=== PATIENT | male | born 1970 | race Caucasian/White ===

== ENCOUNTER 2019-12-29 15:45 | Inpatient (IN) ==
[2019-12-29] MEDS ORDERED: Diazepam 5 mg TAB (*) PO ONE (16:19)
[2019-12-29] MEDS ORDERED: Lorazepam PYXIS KEY PRN ×6 (17:07→22:14)
[2019-12-29] MEDS ORDERED: Thiamine 100 MG/ML 2 ml VIAL 100 MG, Folic Acid 1 MG, Multiple Vitamin IV ADULT 10 ML i... IV ONE ×2 (17:07→19:28)
[2019-12-29] MEDS ORDERED: LORazepam 2 mg VIAL 1 ml IV PUSH ONE ×3 (17:07→22:14)
[2019-12-29 18:05] LABS: ABS Basophils 0.1 10^3/ul (0-0.2); ABS Eosinophils 0.3 10^3/ul (0-0.6); ABS Lymphocytes 1.1 10^3/ul (1.0-4.8); ABS Monocytes 1.1 10^3/ul (0-0.8); Eosinophil % 3.6 %; Hematocrit 31 % (42-52); Hemoglobin 10.2 g/dL (14.0-18.0); Lymphocyte % 13.2 %; Mean Corpuscular HGB Conc 33 g/dL (31-36); Mean Corpuscular Hemoglobin 29 pg (27-31); Mean Corpuscular Volume 89 fL (80-94); Mean Platelet Volume 8.5 fL (7.4-10.4); Platelet Count 142 10^3/uL (150-450); Red Blood Count 3.47 10^6 /uL (4.18-5.48); Red Cell Distribution Width 19 % (10-15); White Blood Count 8.3 10^3/uL (3.5-10.8)
[2019-12-29 18:34] LABS: ALT 12 U/L (7-52); AST 19 U/L (13-39); Albumin 3.4 g/dL (3.2-5.2); Albumin/Globulin Ratio 0.9 (1-3); Alkaline Phosphatase 123 U/L (34-104); Anion Gap 9 mmol/L (2-11); BUN/Creatinine Ratio 15.8 (8-20); Blood Urea Nitrogen 25 mg/dL (6-24); CO2 Carbon Dioxide 25 mmol/L (22-32); Calcium 9.3 mg/dL (8.6-10.3); Chloride 102 mmol/L (101-111); EGFR African American 56.5 (>60); EGFR Non-African American 46.7 (>60); Globulin 3.9 g/dL (2-4); Glucose 111 mg/dL (70-100); Potassium 4.6 mmol/L (3.5-5.0); Sodium 136 mmol/L (135-145); Total Protein 7.3 g/dL (6.4-8.9)
[2019-12-29 18:36] LABS: Alcohol, S < 10 mg/dL (<10)
[2019-12-29] MEDS ORDERED: LORazepam 2 mg VIAL 1 ml IM ONE ×2 (18:49→18:51)
[2019-12-29] MEDS ORDERED: Lorazepam PYXIS KEY ONE (19:03)
[2019-12-29] MEDS ORDERED: LORazepam 2 mg VIAL 1 ml ONE ×2 (19:03→22:17)
[2019-12-29] MEDS ORDERED: Etomidate 20 mg/10 ml 2 MG/ML 10 ml VIAL IV ONE (19:11)
[2019-12-29] MEDS ORDERED: Succinylcholine 200 mg VIAL 20 mg/ml 10 ml VIAL (200 mg) IV ONE (19:11)
[2019-12-29] MEDS ORDERED: Succinylcholine 200 mg VIAL 20 mg/ml 10 ml VIAL (200 mg) ONE (19:13)
[2019-12-29] MEDS ORDERED: Midazolam 5 mg/5 ml VIAL 1 mg/ml 5 ml VIAL (5 mg) IV SLOW PU ONE (19:13)
[2019-12-29] MEDS ORDERED: Rocuronium 50 mg VIAL 10 mg/ml 5 ml VIAL (50 mg) ONE (19:13)
[2019-12-29] MEDS ORDERED: Propofol 10 mg/ml 100 ML BTL 100 ML IV ONE (19:13)
[2019-12-29] MEDS ORDERED: levETIRAcetam IV 1,500 MG in NS 0.9% 100 ml BAG 100 ML IVPB ONE (19:29)
[2019-12-29] MEDS ORDERED: LORazepam 2 mg VIAL 1 ml IV PUSH PRN (19:39)
[2019-12-29] MEDS ORDERED: Vancomycin(*) 1,000 MG in NS 0.9% 250 ml 250 ML IVPB ONE (19:40)
[2019-12-29 19:59] LABS: C Reactive Protein 174.17 mg/L (<8.01)
[2019-12-29] MEDS ORDERED: Vancomycin per Pharmacy 1 EA NOTE FOLLOW UP SCH (20:00)
[2019-12-29] MEDS ORDERED: Thiamine 100 MG/ML 2 ml VIAL (200 mg) IV SCH (20:00)
[2019-12-29 20:04] LABS: Urine Appearance Cloudy; Urine Bilirubin Negative (Negative); Urine Blood Negative (Negative); Urine Color Amber; Urine Glucose Negative (Negative); Urine Ketones Negative (Negative); Urine Nitrite Negative (Negative); Urine Protein Negative (Negative); Urine Specific Gravity 1.018 (1.010-1.030); Urine Urobilinogen Negative (Negative)
[2019-12-29 20:19] LABS: Urine Benzodiazepine Screen Presumptive Positive (None Detect); Urine Opiates Screen None Detected (None Detect)
[2019-12-29 20:40] LABS: ABS Basophils 0.1 10^3/ul (0-0.2); ABS Eosinophils 0.3 10^3/ul (0-0.6); ABS Lymphocytes 0.9 10^3/ul (1.0-4.8); ABS Monocytes 0.8 10^3/ul (0-0.8); Hematocrit 29 % (42-52); Hemoglobin 9.6 g/dL (14.0-18.0); Lymphocyte % 12.2 %; Mean Corpuscular HGB Conc 34 g/dL (31-36); Mean Corpuscular Hemoglobin 30 pg (27-31); Mean Corpuscular Volume 89 fL (80-94); Nucleated Red Blood Cells % 0.1; Platelet Count 127 10^3/uL (150-450); Red Blood Count 3.19 10^6 /uL (4.18-5.48); Red Cell Distribution Width 19 % (10-15); White Blood Count 7.3 10^3/uL (3.5-10.8)
[2019-12-29 20:50] LABS: Activated Partial Thrombo Time 27.9 seconds (26.0-38.0); INR 1.21 (0.82-1.09)
[2019-12-29 20:59] LABS: Albumin 3.3 g/dL (3.2-5.2); Albumin/Globulin Ratio 0.8 (1-3); BUN/Creatinine Ratio 14.4 (8-20); Calcium 8.6 mg/dL (8.6-10.3); EGFR African American 50.5 (>60); EGFR Non-African American 41.7 (>60); Globulin 3.9 g/dL (2-4); Potassium 5.5 mmol/L (3.5-5.0); Total Bilirubin 1.2 mg/dL (0.2-1.0); Total Protein 7.2 g/dL (6.4-8.9)
[2019-12-29] MEDS ORDERED: Vancomycin(*) 1,250 MG in NS 0.9% 250 ml 250 ML IVPB ONE (21:00)
[2019-12-29] MEDS ORDERED: Sodium Polystyrene ORAL.SUSP 15 GM/60 ML BTL PO ONE (21:08)
[2019-12-29 21:18] LABS: Prolactin 60.3 ng/mL (1.0-20.0)
[2019-12-29] MEDS ORDERED: Vancomycin per Pharmacy 1 EA NOTE FOLLOW UP PRN (21:44)
[2019-12-29] MEDS: Heparin 5000 UNITS/ML VIAL(*) 1 ml vial SUBCUT SCH (21:58)
[2019-12-29] MEDS: Thiamine IV 500 MG in NS 0.9% 250 ML (Wernicke-Korsakoff) IV SCH (21:59)
[2019-12-29 22:04] LABS: Erythrocyte Sed Rate > 120 mm/Hr (0-19)
[2019-12-29] MEDS: NS 0.9% 1000 ml BAG 1,000 ML IV SCH (22:11)
[2019-12-29 22:55] LABS: Urine Creatinine Concentration 85.37 mg/dL
[2019-12-29] MEDS: Chlorhexidine MOUTHWASH 0.12% 15 ML UDC SCH (23:37)
[2019-12-30] MEDS ORDERED: Lactated Ringers 1000 ml BAG 1,000 ML IV ONE ×2 (00:28→04:00)
[2019-12-30 01:07] LABS: BUN/Creatinine Ratio 17.3 (8-20); Blood Urea Nitrogen 26 mg/dL (6-24); CO2 Carbon Dioxide 22 mmol/L (22-32); Calcium 7.5 mg/dL (8.6-10.3); Chloride 110 mmol/L (101-111); EGFR African American 59.9 (>60); EGFR Non-African American 49.5 (>60); Glucose 118 mg/dL (70-100); Sodium 137 mmol/L (135-145)
[2019-12-30 01:09] LABS: Anion Gap 5 mmol/L (2-11)
[2019-12-30] MEDS: Propofol* 20 ML VIAL - FOR IV LINE PRIMING ONLY SCH ×4 (01:38→21:35)
[2019-12-30] MEDS: Chlorhexidine MOUTHWASH 0.12% 15 ML UDC SCH ×6 (02:17→21:59)
[2019-12-30] MEDS: Propofol 10 mg/ml 100 ML BTL 100 ML IV SCH ×2 (03:07→22:29)
[2019-12-30 04:16] LABS: ABS Eosinophils 0.2 10^3/ul (0-0.6); ABS Lymphocytes 1.1 10^3/ul (1.0-4.8); ABS Monocytes 0.6 10^3/ul (0-0.8); Eosinophil % 4.9 %; Hematocrit 23 % (42-52); Hemoglobin 7.7 g/dL (14.0-18.0); Lymphocyte % 22.8 %; Mean Corpuscular HGB Conc 33 g/dL (31-36); Mean Corpuscular Hemoglobin 30 pg (27-31); Mean Corpuscular Volume 90 fL (80-94); Mean Platelet Volume 8.3 fL (7.4-10.4); Platelet Count 107 10^3/uL (150-450); Red Blood Count 2.59 10^6 /uL (4.18-5.48); Red Cell Distribution Width 19 % (10-15); White Blood Count 4.6 10^3/uL (3.5-10.8)
[2019-12-30 04:32] LABS: BUN/Creatinine Ratio 18.2 (8-20); Blood Urea Nitrogen 24 mg/dL (6-24); CO2 Carbon Dioxide 22 mmol/L (22-32); Calcium 7.2 mg/dL (8.6-10.3); EGFR African American 69.5 (>60); EGFR Non-African American 57.4 (>60); Glucose 95 mg/dL (70-100); Potassium 3.9 mmol/L (3.5-5.0); Sodium 139 mmol/L (135-145)
[2019-12-30 04:40] LABS: Anion Gap 4 mmol/L (2-11); Chloride 113 mmol/L (101-111)
[2019-12-30] MEDS: Heparin 5000 UNITS/ML VIAL(*) 1 ml vial SUBCUT SCH ×3 (05:56→21:59)
[2019-12-30] MEDS: Thiamine IV 500 MG in NS 0.9% 250 ML (Wernicke-Korsakoff) IV SCH ×3 (05:56→21:59)
[2019-12-30 06:27] LABS: % Iron Saturation 11 % (15-55); Iron 30 ug/dL (50-212); Total Iron Binding Capacity 274 mcg/dL (250-450); Transferrin 196 mg/dL (203-362)
[2019-12-30] MEDS ORDERED: NS 0.9% 1000 ml BAG 1,000 ML IV ONE (06:37)
[2019-12-30 06:48] LABS: Ferritin 128.9 ng/mL (24-336)
[2019-12-30] MEDS: LEVETIRACETAM 500 MG IV SCH ×2 (07:35→21:59)
[2019-12-30] MEDS: Multivitamins ADULT w/MIN LIQ 15 ML UDC PO SCH (07:35)
[2019-12-30] MEDS: IVPREM IV SCH ×2 (07:35→21:59)
[2019-12-30] MEDS: Vancomycin(*) 750 MG in NS 0.9% 250 ml 250 ML IVPB SCH ×2 (07:42→21:58)
[2019-12-30] MEDS: NS 0.9% 1000 ml BAG 1,000 ML IV SCH (07:58)
[2019-12-30] MEDS: Cefepime 1 GM in Dextrose(*) 1 GM/50 ML BAG IV SCH ×2 (08:47→19:22)
[2019-12-30] MEDS: Dexmedetomidine 1,000 MCG in NS 0.9% 250 ml 240 ML IV SCH (09:00)
[2019-12-30] MEDS ORDERED: Thiamine 100 MG/ML 2 ml VIAL (200 mg) IV SCH (09:00)
[2019-12-30] MEDS ORDERED: Magnesium Sulfate 2 gm BAG 2 GM/50 ML BAG IVPB ONE (10:45)
[2019-12-30] MEDS: CMCS:Venlafaxine 25 mg TAB (NF) PO SCH ×2 (11:23→21:59)
[2019-12-30] MEDS ORDERED: Albumin Human 5% 25 GM/500 ML BTL IV ONE (13:18)
[2019-12-30] MEDS ORDERED: Albumin Human 5% 25.0 GM/500 ML BTL IV ONE (13:24)
[2019-12-30] MEDS ORDERED: Albumin Human 5% 12.5 GM/250 ML BTL IV SCH (14:00)
[2019-12-30] MEDS ORDERED: Norepinephrine 16MCG/ML IVPRE 4,000 MCG/250 ML BAG IV ONE (15:13)
[2019-12-30] MEDS: Norepinephrine 16MCG/ML IVPRE 4,000 MCG/250 ML BAG IV SCH (15:15)
[2019-12-31] MEDS: NS 0.9% 1000 ml BAG 1,000 ML IV SCH ×2 (00:07→18:21)
[2019-12-31] MEDS: Chlorhexidine MOUTHWASH 0.12% 15 ML UDC SCH ×6 (00:53→21:21)
[2019-12-31] MEDS ORDERED: fentaNYL 100 mcg/2 ml 50 MCG/ML VIAL ONE (01:22)
[2019-12-31] MEDS ORDERED: Ziprasidone IM 20 mg VIAL 1 ml VIAL IM ONE (01:26)
[2019-12-31] MEDS: fentaNYL 100 mcg/2 ml 50 MCG/ML VIAL IV SLOW PU PRN ×5 (01:37→19:41)
[2019-12-31] MEDS: Propofol 10 mg/ml 100 ML BTL 100 ML IV SCH ×4 (02:26→16:46)
[2019-12-31] MEDS: Dexmedetomidine 1,000 MCG in NS 0.9% 250 ml 240 ML IV SCH ×2 (04:54→19:25)
[2019-12-31 05:07] LABS: ABS Basophils 0.1 10^3/ul (0-0.2); ABS Eosinophils 0.2 10^3/ul (0-0.6); ABS Lymphocytes 0.9 10^3/ul (1.0-4.8); ABS Monocytes 0.6 10^3/ul (0-0.8); Hematocrit 24 % (42-52); Hemoglobin 8.3 g/dL (14.0-18.0); Lymphocyte % 15.3 %; Mean Corpuscular HGB Conc 35 g/dL (31-36); Mean Corpuscular Hemoglobin 31 pg (27-31); Mean Corpuscular Volume 91 fL (80-94); Mean Platelet Volume 8.7 fL (7.4-10.4); Platelet Count 107 10^3/uL (150-450); Red Blood Count 2.65 10^6 /uL (4.18-5.48); Red Cell Distribution Width 19 % (10-15)
[2019-12-31 05:17] LABS: Albumin 2.7 g/dL (3.2-5.2); Albumin/Globulin Ratio 0.9 (1-3); BUN/Creatinine Ratio 14.9 (8-20); Calcium 7.7 mg/dL (8.6-10.3); EGFR African American 94.6 (>60); EGFR Non-African American 78.2 (>60); Globulin 2.9 g/dL (2-4); Phosphorus 2.3 mg/dL (2.5-5.0); Potassium 3.9 mmol/L (3.5-5.0); Total Bilirubin 0.6 mg/dL (0.2-1.0); Total Protein 5.6 g/dL (6.4-8.9)
[2019-12-31] MEDS: Heparin 5000 UNITS/ML VIAL(*) 1 ml vial SUBCUT SCH ×3 (05:37→21:21)
[2019-12-31] MEDS: Thiamine IV 500 MG in NS 0.9% 250 ML (Wernicke-Korsakoff) IV SCH ×3 (05:37→21:21)
[2019-12-31] MEDS ORDERED: Vancomycin Trough Check NOTE FOLLOW UP ONE (08:30)
[2019-12-31] MEDS: Cefepime 1 GM in Dextrose(*) 1 GM/50 ML BAG IV SCH ×2 (08:35→19:11)
[2019-12-31] MEDS: Propofol* 20 ML VIAL - FOR IV LINE PRIMING ONLY SCH ×2 (08:41→20:58)
[2019-12-31] MEDS: Multivitamins ADULT w/MIN LIQ 15 ML UDC PO SCH (09:39)
[2019-12-31] MEDS: LEVETIRACETAM 500 MG IV SCH ×2 (09:39→21:21)
[2019-12-31] MEDS: Vancomycin(*) 750 MG in NS 0.9% 250 ml 250 ML IVPB SCH ×2 (09:39→21:21)
[2019-12-31] MEDS: IVPREM IV SCH ×2 (09:39→21:21)
[2019-12-31] MEDS: CMCS:Venlafaxine 25 mg TAB (NF) PO SCH ×2 (09:40→21:54)
[2020-01-01] MEDS: fentaNYL 100 mcg/2 ml 50 MCG/ML VIAL IV SLOW PU PRN ×3 (00:45→21:39)
[2020-01-01] MEDS: Chlorhexidine MOUTHWASH 0.12% 15 ML UDC SCH ×6 (02:11→21:14)
[2020-01-01] MEDS: NS 0.9% 1000 ml BAG 1,000 ML IV SCH ×3 (02:41→16:00)
[2020-01-01 04:18] LABS: ABS Eosinophils 0.1 10^3/ul (0-0.6); ABS Lymphocytes 0.8 10^3/ul (1.0-4.8); ABS Monocytes 0.4 10^3/ul (0-0.8); Eosinophil % 4.1 %; Hematocrit 25 % (42-52); Lymphocyte % 22.8 %; Mean Corpuscular HGB Conc 33 g/dL (31-36); Mean Corpuscular Hemoglobin 30 pg (27-31); Mean Corpuscular Volume 92 fL (80-94); Mean Platelet Volume 8.4 fL (7.4-10.4); Nucleated Red Blood Cells % 0.1; Platelet Count 105 10^3/uL (150-450); Red Blood Count 2.68 10^6 /uL (4.18-5.48); Red Cell Distribution Width 19 % (10-15); White Blood Count 3.5 10^3/uL (3.5-10.8)
[2020-01-01 04:34] LABS: BUN/Creatinine Ratio 11.6 (8-20); Calcium 7.5 mg/dL (8.6-10.3); EGFR African American 101.5 (>60); EGFR Non-African American 83.9 (>60); Potassium 3.9 mmol/L (3.5-5.0)
[2020-01-01] MEDS: Thiamine IV 500 MG in NS 0.9% 250 ML (Wernicke-Korsakoff) IV SCH ×2 (06:18→13:49)
[2020-01-01] MEDS: Heparin 5000 UNITS/ML VIAL(*) 1 ml vial SUBCUT SCH ×3 (06:18→21:14)
[2020-01-01] MEDS: Dexmedetomidine 1,000 MCG in NS 0.9% 250 ml 240 ML IV SCH (06:18)
[2020-01-01] MEDS: Cefepime 1 GM in Dextrose(*) 1 GM/50 ML BAG IV SCH ×2 (07:57→19:50)
[2020-01-01] MEDS: Propofol* 20 ML VIAL - FOR IV LINE PRIMING ONLY SCH ×2 (07:57→19:50)
[2020-01-01] MEDS: CMCS:Venlafaxine 25 mg TAB (NF) PO SCH ×2 (09:24→21:14)
[2020-01-01] MEDS: Multivitamins ADULT w/MIN LIQ 15 ML UDC PO SCH (09:24)
[2020-01-01] MEDS: LEVETIRACETAM 500 MG IV SCH ×2 (09:24→21:14)
[2020-01-01] MEDS: IVPREM IV SCH ×2 (09:24→21:14)
[2020-01-01] MEDS: Vancomycin(*) 750 MG in NS 0.9% 250 ml 250 ML IVPB SCH ×2 (09:44→21:14)
[2020-01-01] MEDS ORDERED: fentaNYL 100 mcg/2 ml 50 MCG/ML VIAL IV SLOW PU ONE (10:31)
[2020-01-01] MEDS: Propofol 10 mg/ml 100 ML BTL 100 ML IV SCH ×3 (11:55→20:25)
[2020-01-02] MEDS: Dexmedetomidine 1,000 MCG in NS 0.9% 250 ml 240 ML IV SCH ×3 (01:15→19:12)
[2020-01-02] MEDS ORDERED: fentaNYL 100 mcg/2 ml 50 MCG/ML VIAL ONE (01:59)
[2020-01-02] MEDS: fentaNYL 100 mcg/2 ml 50 MCG/ML VIAL IV SLOW PU PRN ×3 (02:05→12:11)
[2020-01-02] MEDS: Chlorhexidine MOUTHWASH 0.12% 15 ML UDC SCH ×6 (02:07→20:27)
[2020-01-02] MEDS ORDERED: fentaNYL 100 mcg/2 ml 50 MCG/ML VIAL IV SLOW PU ONE (03:15)
[2020-01-02 04:59] LABS: ABS Eosinophils 0.1 10^3/ul (0-0.6); ABS Lymphocytes 0.4 10^3/ul (1.0-4.8); ABS Monocytes 0.2 10^3/ul (0-0.8); Eosinophil % 3.3 %; Hematocrit 23 % (42-52); Hemoglobin 7.7 g/dL (14.0-18.0); Lymphocyte % 11.4 %; Mean Corpuscular HGB Conc 34 g/dL (31-36); Mean Corpuscular Hemoglobin 30 pg (27-31); Mean Corpuscular Volume 91 fL (80-94); Mean Platelet Volume 8.3 fL (7.4-10.4); Nucleated Red Blood Cells % 0.1; Platelet Count 101 10^3/uL (150-450); Red Blood Count 2.54 10^6 /uL (4.18-5.48); Red Cell Distribution Width 20 % (10-15); White Blood Count 3.3 10^3/uL (3.5-10.8)
[2020-01-02 05:12] LABS: BUN/Creatinine Ratio 12.4 (8-20); Calcium 7.5 mg/dL (8.6-10.3); EGFR African American 99.1 (>60); EGFR Non-African American 81.9 (>60); Potassium 3.9 mmol/L (3.5-5.0)
[2020-01-02] MEDS: Propofol 10 mg/ml 100 ML BTL 100 ML IV SCH ×4 (05:32→21:11)
[2020-01-02] MEDS: Heparin 5000 UNITS/ML VIAL(*) 1 ml vial SUBCUT SCH ×3 (06:06→20:26)
[2020-01-02] MEDS: NS 0.9% 1000 ml BAG 1,000 ML IV SCH (07:19)
[2020-01-02] MEDS: Cefepime 1 GM in Dextrose(*) 1 GM/50 ML BAG IV SCH ×2 (07:21→19:15)
[2020-01-02] MEDS: LEVETIRACETAM 500 MG IV SCH ×2 (08:37→20:26)
[2020-01-02] MEDS: IVPREM IV SCH ×2 (08:37→20:26)
[2020-01-02] MEDS: Multivitamins ADULT w/MIN LIQ 15 ML UDC PO SCH (08:41)
[2020-01-02] MEDS: CMCS:Venlafaxine 25 mg TAB (NF) PO SCH ×2 (08:41→20:27)
[2020-01-02] MEDS: Vancomycin(*) 750 MG in NS 0.9% 250 ml 250 ML IVPB SCH ×2 (08:41→21:11)
[2020-01-02] MEDS ORDERED: Cefepime 1 GM in Dextrose(*) 1 GM/50 ML BAG IV SCH (09:00)
[2020-01-02] MEDS ORDERED: Lorazepam PYXIS KEY ONE (13:13)
[2020-01-02] MEDS ORDERED: LORazepam 2 mg VIAL 1 ml ONE (13:14)
[2020-01-02] MEDS ORDERED: LORazepam 2 mg VIAL 1 ml IV PUSH ONE (13:20)
[2020-01-02] MEDS: Norepinephrine 16MCG/ML IVPRE 4,000 MCG/250 ML BAG IV SCH (15:05)
[2020-01-02] MEDS: Propofol* 20 ML VIAL - FOR IV LINE PRIMING ONLY SCH (19:13)
[2020-01-03] MEDS: Propofol 10 mg/ml 100 ML BTL 100 ML IV SCH ×5 (01:16→19:47)
[2020-01-03] MEDS: Chlorhexidine MOUTHWASH 0.12% 15 ML UDC SCH ×6 (01:58→22:12)
[2020-01-03] MEDS: fentaNYL 100 mcg/2 ml 50 MCG/ML VIAL IV SLOW PU PRN ×4 (02:53→19:46)
[2020-01-03] MEDS: Dexmedetomidine 1,000 MCG in NS 0.9% 250 ml 240 ML IV SCH ×3 (04:31→21:00)
[2020-01-03] MEDS: NS 0.9% 1000 ml BAG 1,000 ML IV SCH (04:55)
[2020-01-03 05:20] LABS: Hematocrit 24 % (42-52); Hemoglobin 8.1 g/dL (14.0-18.0); Mean Corpuscular HGB Conc 33 g/dL (31-36); Mean Corpuscular Hemoglobin 30 pg (27-31); Mean Corpuscular Volume 90 fL (80-94); Mean Platelet Volume 8.7 fL (7.4-10.4); Platelet Count 115 10^3/uL (150-450); Red Blood Count 2.72 10^6 /uL (4.18-5.48); Red Cell Distribution Width 20 % (10-15); White Blood Count 5.2 10^3/uL (3.5-10.8)
[2020-01-03] MEDS: Heparin 5000 UNITS/ML VIAL(*) 1 ml vial SUBCUT SCH ×3 (05:29→22:12)
[2020-01-03 05:32] LABS: Anion Gap 4 mmol/L (2-11); Blood Urea Nitrogen 12 mg/dL (6-24); CO2 Carbon Dioxide 19 mmol/L (22-32); Calcium 7.8 mg/dL (8.6-10.3); Chloride 116 mmol/L (101-111); EGFR African American 113.9 (>60); EGFR Non-African American 94.1 (>60); Glucose 136 mg/dL (70-100); Potassium 4.1 mmol/L (3.5-5.0); Sodium 139 mmol/L (135-145)
[2020-01-03] MEDS: Cefepime 1 GM in Dextrose(*) 1 GM/50 ML BAG IV SCH ×2 (08:02→19:54)
[2020-01-03] MEDS: Propofol* 20 ML VIAL - FOR IV LINE PRIMING ONLY SCH ×2 (08:02→19:47)
[2020-01-03] MEDS: Norepinephrine 16MCG/ML IVPRE 4,000 MCG/250 ML BAG IV SCH (08:19)
[2020-01-03] MEDS ORDERED: Vancomycin Trough Check NOTE FOLLOW UP ONE (08:30)
[2020-01-03] MEDS ORDERED: Lactulose 30 ml UDC PO SCH ×2 (09:00→13:00)
[2020-01-03] MEDS: LEVETIRACETAM 500 MG IV SCH (09:03)
[2020-01-03] MEDS: Vancomycin(*) 750 MG in NS 0.9% 250 ml 250 ML IVPB SCH (09:03)
[2020-01-03] MEDS: Multivitamins ADULT w/MIN LIQ 15 ML UDC PO SCH (09:03)
[2020-01-03] MEDS: IVPREM IV SCH (09:03)
[2020-01-03] MEDS: CMCS:Venlafaxine 25 mg TAB (NF) PO SCH (09:04)
[2020-01-03] MEDS ORDERED: Mometasone/Formoter 200/5 MDI INH SCH (13:00)
[2020-01-03 13:49] LABS: % Iron Saturation 8 % (15-55); Iron < 20 ug/dL (50-212); Total Iron Binding Capacity 239 mcg/dL (250-450); Transferrin 171 mg/dL (203-362)
[2020-01-03 14:09] LABS: Ferritin 88.3 ng/mL (24-336)
[2020-01-03] MEDS ORDERED: Furosemide 40 mg/4 ml IV VIAL IV ONE (14:59)
[2020-01-03] MEDS ORDERED: Perflutren Lipid Microsphere 3 ML VIAL ONE (15:46)
[2020-01-03] MEDS ORDERED: Furosemide 40 mg/4 ml IV VIAL ONE (17:43)
[2020-01-03] MEDS ORDERED: fentaNYL 100 mcg/2 ml 50 MCG/ML VIAL IV SLOW PU ONE (19:40)
[2020-01-03] MEDS ORDERED: fentaNYL 100 mcg/2 ml 50 MCG/ML VIAL ONE (19:41)
[2020-01-03] MEDS ORDERED: VENLAFAXINE 25 MG G TUBE SCH (21:00)
[2020-01-03] MEDS: Lactulose 30 ml UDC PO SCH (22:12)
[2020-01-04] MEDS: Chlorhexidine MOUTHWASH 0.12% 15 ML UDC SCH ×6 (02:04→22:18)
[2020-01-04] MEDS ORDERED: Lorazepam PYXIS KEY PRN (02:18)
[2020-01-04] MEDS ORDERED: LORazepam 2 mg VIAL 1 ml IV PUSH ONE (02:18)
[2020-01-04] MEDS: Propofol 10 mg/ml 100 ML BTL 100 ML IV SCH ×5 (02:39→20:21)
[2020-01-04 04:27] LABS: ABS Lymphocytes 0.3 10^3/ul (1.0-4.8); ABS Monocytes 0.7 10^3/ul (0-0.8); Eosinophil % 0.2 %; Hematocrit 25 % (42-52); Hemoglobin 8.4 g/dL (14.0-18.0); Lymphocyte % 3.9 %; Mean Corpuscular HGB Conc 34 g/dL (31-36); Mean Corpuscular Hemoglobin 30 pg (27-31); Mean Corpuscular Volume 90 fL (80-94); Mean Platelet Volume 9.2 fL (7.4-10.4); Platelet Count 119 10^3/uL (150-450); Red Blood Count 2.78 10^6 /uL (4.18-5.48); Red Cell Distribution Width 20 % (10-15); White Blood Count 7.4 10^3/uL (3.5-10.8)
[2020-01-04 04:44] LABS: Albumin 2.6 g/dL (3.2-5.2); Albumin/Globulin Ratio 0.7 (1-3); BUN/Creatinine Ratio 15.7 (8-20); Calcium 8.4 mg/dL (8.6-10.3); EGFR African American 109.5 (>60); EGFR Non-African American 90.5 (>60); Globulin 3.5 g/dL (2-4); Potassium 3.9 mmol/L (3.5-5.0); Total Bilirubin 0.5 mg/dL (0.2-1.0); Total Protein 6.1 g/dL (6.4-8.9)
[2020-01-04] MEDS: Heparin 5000 UNITS/ML VIAL(*) 1 ml vial SUBCUT SCH ×3 (05:49→22:17)
[2020-01-04] MEDS: Dexmedetomidine 1,000 MCG in NS 0.9% 250 ml 240 ML IV SCH ×3 (06:28→23:09)
[2020-01-04] MEDS ORDERED: Furosemide 40 mg/4 ml IV VIAL IV ONE (07:24)
[2020-01-04] MEDS ORDERED: Piperacillin/Tazobac ADVAN(*) 3.375 GM in NS 0.9% 100 ml BAG 100 ML IVPB ONE (08:36)
[2020-01-04] MEDS: Propofol* 20 ML VIAL - FOR IV LINE PRIMING ONLY SCH ×2 (08:36→20:22)
[2020-01-04] MEDS: Cefepime 1 GM in Dextrose(*) 1 GM/50 ML BAG IV SCH (08:43)
[2020-01-04] MEDS ORDERED: Zosyn per Pharmacy NOTE FOLLOW UP SCH (09:00)
[2020-01-04] MEDS ORDERED: Thiamine 100 MG/ML 2 ml VIAL (200 mg) IV SCH (09:00)
[2020-01-04] MEDS ORDERED: Nicotine PATCH 7 MG/24 HR PATCH TRANSDERM SCH (09:00)
[2020-01-04 10:09] LABS: Urine Appearance Cloudy; Urine Bilirubin Negative (Negative); Urine Blood Negative (Negative); Urine Color Amber; Urine Glucose Negative (Negative); Urine Ketones Negative (Negative); Urine Nitrite Negative (Negative); Urine Protein 2+(100 mg/dL) (Negative); Urine Specific Gravity 1.024 (1.010-1.030); Urine Urobilinogen Negative (Negative)
[2020-01-04] MEDS: CMCS:Venlafaxine 25 mg TAB (NF) G TUBE SCH (10:10)
[2020-01-04] MEDS: Lactulose 30 ml UDC PO SCH ×3 (10:10→22:17)
[2020-01-04 10:14] LABS: Urine Bacteria Absent (Absent); Urine Red Blood Cell 2+(6-10/hpf) (Absent); Urine Squamous Epithelial Cell Present (Absent); Urine White Blood Cell Trace(0-5/hpf) (Absent)
[2020-01-04] MEDS ORDERED: Furosemide 20 mg/2 ml IV VIAL IV ONE (10:15)
[2020-01-04] MEDS: Furosemide 100 mg/10 ml IV 100 MG in NS 0.9% 100 ml BAG 90 ML IV SCH ×2 (10:20→14:04)
[2020-01-04] MEDS: Thiamine IV 250 MG in NS 0.9% 100 ML Q24H IV SCH (10:24)
[2020-01-04] MEDS: Famotidine IV 10 MG/ML 2 ml VIAL (20 mg) IV SLOW PU SCH (10:37)
[2020-01-04] MEDS ORDERED: Acetaminophen IV 1 GM/100ML 50 ML IVPB ONE (13:30)
[2020-01-04] MEDS ORDERED: Acetaminophen IV 1 GM/100ML 100 ML IVPB ONE (13:43)
[2020-01-04] MEDS ORDERED: Albumin Human 25% 12.5 GM/50 ML BTL IV ONE (14:14)
[2020-01-04] MEDS ORDERED: Furosemide 100 mg/10 ml IV 100 MG in NS 0.9% 100 ml BAG 90 ML IV SCH (14:30)
[2020-01-04] MEDS ORDERED: Furosemide 100 mg/10 ml IV VIAL IV ONE (17:00)
[2020-01-04] MEDS: ZOSYN 3.375 GM Q8H per EXTENDED INFUSION IV SCH (17:45)
[2020-01-05] MEDS: ZOSYN 3.375 GM Q8H per EXTENDED INFUSION IV SCH ×4 (00:14→23:39)
[2020-01-05] MEDS: Propofol 10 mg/ml 100 ML BTL 100 ML IV SCH ×6 (00:14→20:25)
[2020-01-05] MEDS: Chlorhexidine MOUTHWASH 0.12% 15 ML UDC SCH ×6 (01:52→20:26)
[2020-01-05] MEDS: Heparin 5000 UNITS/ML VIAL(*) 1 ml vial SUBCUT SCH (05:15)
[2020-01-05 05:39] LABS: Hematocrit 24 % (42-52); Hemoglobin 7.9 g/dL (14.0-18.0); Mean Corpuscular HGB Conc 34 g/dL (31-36); Mean Corpuscular Hemoglobin 30 pg (27-31); Mean Corpuscular Volume 90 fL (80-94); Mean Platelet Volume 9.3 fL (7.4-10.4); Platelet Count 136 10^3/uL (150-450); Red Blood Count 2.62 10^6 /uL (4.18-5.48); Red Cell Distribution Width 20 % (10-15)
[2020-01-05 05:55] LABS: BUN/Creatinine Ratio 18.7 (8-20); EGFR African American 75.4 (>60); EGFR Non-African American 62.3 (>60); Potassium 3.5 mmol/L (3.5-5.0)
[2020-01-05] MEDS: Famotidine IV 10 MG/ML 2 ml VIAL (20 mg) IV SLOW PU SCH (07:59)
[2020-01-05] MEDS: Lactulose 30 ml UDC PO SCH ×3 (07:59→20:24)
[2020-01-05] MEDS: CMCS:Venlafaxine 25 mg TAB (NF) G TUBE SCH (08:01)
[2020-01-05] MEDS: Dexmedetomidine 1,000 MCG in NS 0.9% 250 ml 240 ML IV SCH ×2 (08:09→17:22)
[2020-01-05] MEDS ORDERED: Albumin Human 25% 25 GM/100 ML BTL IV ONE (08:40)
[2020-01-05] MEDS ORDERED: Furosemide 40 mg/4 ml IV VIAL IV SLOW PU ONE (09:00)
[2020-01-05] MEDS ORDERED: Acetaminophen IV 1 GM/100ML 0 ML IVPB SCH (09:00)
[2020-01-05] MEDS: Norepinephrine 16MCG/ML IVPRE 4,000 MCG/250 ML BAG IV SCH (09:07)
[2020-01-05] MEDS: Propofol* 20 ML VIAL - FOR IV LINE PRIMING ONLY SCH ×2 (10:16→20:24)
[2020-01-05] MEDS: Thiamine IV 250 MG in NS 0.9% 100 ML Q24H IV SCH (10:37)
[2020-01-05] MEDS: Enoxaparin 40 MG/0.4 ML SYR(*) SUBCUT SCH (11:18)
[2020-01-06] MEDS: Propofol 10 mg/ml 100 ML BTL 100 ML IV SCH ×5 (00:59→21:03)
[2020-01-06] MEDS: Dexmedetomidine 1,000 MCG in NS 0.9% 250 ml 240 ML IV SCH ×3 (01:00→17:01)
[2020-01-06] MEDS: Chlorhexidine MOUTHWASH 0.12% 15 ML UDC SCH ×5 (01:13→21:03)
[2020-01-06 05:22] LABS: Hematocrit 24 % (42-52); Hemoglobin 7.8 g/dL (14.0-18.0); Mean Corpuscular HGB Conc 33 g/dL (31-36); Mean Corpuscular Hemoglobin 30 pg (27-31); Mean Corpuscular Volume 91 fL (80-94); Mean Platelet Volume 9.7 fL (7.4-10.4); Platelet Count 173 10^3/uL (150-450); Red Cell Distribution Width 21 % (10-15); White Blood Count 7.6 10^3/uL (3.5-10.8)
[2020-01-06 05:40] LABS: Albumin 2.7 g/dL (3.2-5.2); Albumin/Globulin Ratio 0.8 (1-3); C Reactive Protein 348.02 mg/L (<8.01); Calcium 8.2 mg/dL (8.6-10.3); EGFR African American 69.5 (>60); EGFR Non-African American 57.4 (>60); Globulin 3.5 g/dL (2-4); Potassium 3.3 mmol/L (3.5-5.0); Total Bilirubin 0.7 mg/dL (0.2-1.0); Total Protein 6.2 g/dL (6.4-8.9)
[2020-01-06] MEDS ORDERED: Furosemide 100 mg/10 ml IV VIAL IV ONE (08:39)
[2020-01-06] MEDS ORDERED: Albumin Human 25% 25 GM/100 ML BTL IV ONE (08:39)
[2020-01-06] MEDS: ZOSYN 3.375 GM Q8H per EXTENDED INFUSION IV SCH ×2 (09:13→16:00)
[2020-01-06] MEDS ORDERED: KCL 10 MEQ/100 ML IVPREMIX 100 ml BAG IV ONE (09:15)
[2020-01-06 09:35] LABS: Magnesium 2.4 mg/dL (1.9-2.7)
[2020-01-06] MEDS: Lactulose 30 ml UDC PO SCH ×3 (09:50→21:03)
[2020-01-06] MEDS: CMCS:Venlafaxine 25 mg TAB (NF) G TUBE SCH (09:50)
[2020-01-06] MEDS: Famotidine IV 10 MG/ML 2 ml VIAL (20 mg) IV SLOW PU SCH (09:50)
[2020-01-06] MEDS: Propofol* 20 ML VIAL - FOR IV LINE PRIMING ONLY SCH ×2 (09:51→20:59)
[2020-01-06] MEDS ORDERED: Anidulafungin 200 MG in NS 0.9% 250 ml 200 ML IVPB ONE (10:00)
[2020-01-06] MEDS: Enoxaparin 40 MG/0.4 ML SYR(*) SUBCUT SCH (10:50)
[2020-01-06] MEDS: Thiamine IV 250 MG in NS 0.9% 100 ML Q24H IV SCH (10:50)
[2020-01-06] MEDS ORDERED: KCL 20 MEQ/100 ML IVPREMIX 20 MEQ/100 ML BAG IV ONE (11:00)
[2020-01-06] MEDS ORDERED: Furosemide 100 mg/10 ml IV VIAL ONE (11:21)
[2020-01-07] MEDS: ZOSYN 3.375 GM Q8H per EXTENDED INFUSION IV SCH ×3 (00:02→15:45)
[2020-01-07] MEDS: Dexmedetomidine 1,000 MCG in NS 0.9% 250 ml 240 ML IV SCH ×3 (00:02→15:45)
[2020-01-07] MEDS: Chlorhexidine MOUTHWASH 0.12% 15 ML UDC SCH ×7 (02:29→22:17)
[2020-01-07] MEDS: Propofol 10 mg/ml 100 ML BTL 100 ML IV SCH ×3 (04:40→22:17)
[2020-01-07 04:54] LABS: Hematocrit 23 % (42-52); Hemoglobin 7.6 g/dL (14.0-18.0); Mean Corpuscular HGB Conc 33 g/dL (31-36); Mean Corpuscular Hemoglobin 30 pg (27-31); Mean Corpuscular Volume 90 fL (80-94); Platelet Count 185 10^3/uL (150-450); Red Blood Count 2.54 10^6 /uL (4.18-5.48); Red Cell Distribution Width 20 % (10-15); White Blood Count 6.6 10^3/uL (3.5-10.8)
[2020-01-07 05:10] LABS: BUN/Creatinine Ratio 20.1 (8-20); Calcium 8.2 mg/dL (8.6-10.3); EGFR African American 68.3 (>60); EGFR Non-African American 56.4 (>60); Magnesium 2.3 mg/dL (1.9-2.7); Potassium 3.2 mmol/L (3.5-5.0)
[2020-01-07] MEDS: KCL 20 MEQ/100 ML IVPREMIX 20 MEQ/100 ML BAG IV SCH ×6 (06:43→21:06)
[2020-01-07] MEDS: Famotidine IV 10 MG/ML 2 ml VIAL (20 mg) IV SLOW PU SCH (08:26)
[2020-01-07] MEDS: Lactulose 30 ml UDC PO SCH ×3 (08:29→21:06)
[2020-01-07] MEDS: Propofol* 20 ML VIAL - FOR IV LINE PRIMING ONLY SCH ×2 (08:57→20:45)
[2020-01-07] MEDS: Thiamine IV 250 MG in NS 0.9% 100 ML Q24H IV SCH (10:05)
[2020-01-07] MEDS: CMCS:Venlafaxine 25 mg TAB (NF) G TUBE SCH (10:05)
[2020-01-07] MEDS: Senna TAB 8.6 mg TAB PO PRN (10:11)
[2020-01-07] MEDS: Enoxaparin 40 MG/0.4 ML SYR(*) SUBCUT SCH (11:33)
[2020-01-07] MEDS: Anidulafungin 100 MG in NS 0.9% 100 ml BAG 100 ML IVPB SCH (11:37)
[2020-01-07] MEDS ORDERED: Lorazepam PYXIS KEY PRN (13:38)
[2020-01-07] MEDS ORDERED: LORazepam 2 mg VIAL 1 ml IV PUSH PRN ×2 (13:38→15:15)
[2020-01-07] MEDS ORDERED: Metoprolol Tartrate 5 mg VIAL 5 ml VIAL (1 mg/ml) IV ONE (14:50)
[2020-01-07] MEDS: Metoprolol Tartrate 5 mg VIAL 5 ml VIAL (1 mg/ml) IV PRN (15:50)
[2020-01-07] MEDS ORDERED: Labetalol IV 5 MG/ML 20 ml VIAL IV PUSH PRN (18:30)
[2020-01-08] MEDS: ZOSYN 3.375 GM Q8H per EXTENDED INFUSION IV SCH ×4 (00:29→23:23)
[2020-01-08] MEDS: Chlorhexidine MOUTHWASH 0.12% 15 ML UDC SCH ×6 (01:25→22:37)
[2020-01-08] MEDS: Dexmedetomidine 1,000 MCG in NS 0.9% 250 ml 240 ML IV SCH ×2 (01:54→14:02)
[2020-01-08] MEDS: Propofol 10 mg/ml 100 ML BTL 100 ML IV SCH ×4 (02:48→15:23)
[2020-01-08 03:50] LABS: Hematocrit 22 % (42-52); Hemoglobin 7.2 g/dL (14.0-18.0); Mean Corpuscular HGB Conc 33 g/dL (31-36); Mean Corpuscular Hemoglobin 30 pg (27-31); Mean Corpuscular Volume 91 fL (80-94); Mean Platelet Volume 8.8 fL (7.4-10.4); Platelet Count 217 10^3/uL (150-450); Red Blood Count 2.44 10^6 /uL (4.18-5.48); Red Cell Distribution Width 21 % (10-15); White Blood Count 7.1 10^3/uL (3.5-10.8)
[2020-01-08 04:07] LABS: BUN/Creatinine Ratio 15.4 (8-20); Calcium 8.2 mg/dL (8.6-10.3); EGFR African American 79.8 (>60); Magnesium 2.3 mg/dL (1.9-2.7); Phosphorus 1.6 mg/dL (2.5-5.0); Potassium 3.8 mmol/L (3.5-5.0)
[2020-01-08] MEDS: Propofol* 20 ML VIAL - FOR IV LINE PRIMING ONLY SCH ×2 (07:58→20:00)
[2020-01-08] MEDS: Famotidine IV 10 MG/ML 2 ml VIAL (20 mg) IV SLOW PU SCH (08:21)
[2020-01-08] MEDS: Lactulose 30 ml UDC PO SCH ×3 (08:21→20:48)
[2020-01-08] MEDS: Thiamine IV 250 MG in NS 0.9% 100 ML Q24H IV SCH (08:32)
[2020-01-08] MEDS ORDERED: Potassium Phosphate IV 15 MMOLE in NS 0.9% 250 ml 250 ML IVPB ONE (09:42)
[2020-01-08] MEDS: Anidulafungin 100 MG in NS 0.9% 100 ml BAG 100 ML IVPB SCH (09:57)
[2020-01-08] MEDS: CMCS:Venlafaxine 25 mg TAB (NF) G TUBE SCH (10:03)
[2020-01-08] MEDS: Enoxaparin 40 MG/0.4 ML SYR(*) SUBCUT SCH (10:06)
[2020-01-08] MEDS: Metoprolol Tartrate 5 mg VIAL 5 ml VIAL (1 mg/ml) IV PRN ×2 (11:48→22:15)
[2020-01-08] MEDS ORDERED: Labetalol IV 5 MG/ML 20 ml VIAL IV PUSH ONE (12:19)
[2020-01-08] MEDS ORDERED: Furosemide 40 mg/4 ml IV VIAL IV ONE (12:46)
[2020-01-08] MEDS: D5W 1000 ml BAG 1,000 ML IV SCH (13:49)
[2020-01-08] MEDS: Labetalol IV 5 MG/ML 20 ml VIAL IV PUSH PRN (15:23)
[2020-01-08] MEDS: Dextran 70/Hypromellose Tears Eye Drops 15 ml BTL (for Artificials Tears) BOTH EYES PRN ×2 (17:55→23:24)
[2020-01-08] MEDS: Senna TAB 8.6 mg TAB PO PRN (20:48)
[2020-01-09] MEDS: Labetalol IV 5 MG/ML 20 ml VIAL IV PUSH PRN (01:52)
[2020-01-09] MEDS: Propofol 10 mg/ml 100 ML BTL 100 ML IV SCH (03:33)
[2020-01-09] MEDS: Chlorhexidine MOUTHWASH 0.12% 15 ML UDC SCH ×6 (03:33→21:46)
[2020-01-09 05:21] LABS: Hematocrit 26 % (42-52); Hemoglobin 8.3 g/dL (14.0-18.0); Mean Corpuscular HGB Conc 32 g/dL (31-36); Mean Corpuscular Hemoglobin 29 pg (27-31); Mean Corpuscular Volume 89 fL (80-94); Mean Platelet Volume 8.5 fL (7.4-10.4); Platelet Count 339 10^3/uL (150-450); Red Blood Count 2.89 10^6 /uL (4.18-5.48); Red Cell Distribution Width 21 % (10-15); White Blood Count 13.7 10^3/uL (3.5-10.8)
[2020-01-09 05:37] LABS: Albumin 2.6 g/dL (3.2-5.2); Albumin/Globulin Ratio 0.7 (1-3); BUN/Creatinine Ratio 15.3 (8-20); Calcium 8.4 mg/dL (8.6-10.3); EGFR African American 84.8 (>60); EGFR Non-African American 70.1 (>60); Globulin 3.9 g/dL (2-4); Phosphorus 2.3 mg/dL (2.5-5.0); Potassium 3.5 mmol/L (3.5-5.0); Total Protein 6.5 g/dL (6.4-8.9)
[2020-01-09 05:39] LABS: ABS Basophils 0.3 10^3/ul (0-0.2); ABS Eosinophils 0.3 10^3/ul (0-0.6); ABS Lymphocytes 1.1 10^3/ul (1.0-4.8); ABS Monocytes 1.9 10^3/ul (0-0.8); Eosinophil % 2.2 %; Lymphocyte % 8.4 %; Nucleated Red Blood Cells % 0.1
[2020-01-09] MEDS: Metoprolol Tartrate 5 mg VIAL 5 ml VIAL (1 mg/ml) IV PRN (05:45)
[2020-01-09] MEDS: Pantoprazole VIAL 40 MG VIAL IV SCH ×2 (05:45→21:46)
[2020-01-09] MEDS: Propofol* 20 ML VIAL - FOR IV LINE PRIMING ONLY SCH ×2 (07:28→21:35)
[2020-01-09] MEDS: ZOSYN 3.375 GM Q8H per EXTENDED INFUSION IV SCH ×2 (07:35→18:31)
[2020-01-09] MEDS: Lactulose 30 ml UDC PO SCH ×3 (08:00→21:35)
[2020-01-09] MEDS: CMCS:Venlafaxine 25 mg TAB (NF) G TUBE SCH (08:07)
[2020-01-09] MEDS: Venlafaxine 25 mg TAB (NF) G TUBE SCH ×3 (08:19→21:36)
[2020-01-09 08:45] LABS: Hematocrit 25 % (42-52); Hemoglobin 8.3 g/dL (14.0-18.0); Mean Corpuscular HGB Conc 33 g/dL (31-36); Mean Corpuscular Hemoglobin 29 pg (27-31); Mean Corpuscular Volume 89 fL (80-94); Mean Platelet Volume 8.6 fL (7.4-10.4); Platelet Count 351 10^3/uL (150-450); Red Blood Count 2.82 10^6 /uL (4.18-5.48); Red Cell Distribution Width 21 % (10-15); White Blood Count 13.7 10^3/uL (3.5-10.8)
[2020-01-09] MEDS ORDERED: Iohexol 300 (CONTRAST) 10 ML SDV IV ONE (09:31)
[2020-01-09] MEDS: Anidulafungin 100 MG in NS 0.9% 100 ml BAG 100 ML IVPB SCH (09:49)
[2020-01-09] MEDS: D5W 1000 ml BAG 1,000 ML IV SCH (11:15)
[2020-01-09] MEDS: Enoxaparin 40 MG/0.4 ML SYR(*) SUBCUT SCH (11:19)
[2020-01-09] MEDS ORDERED: Metoprolol Tartrate 5 mg VIAL 5 ml VIAL (1 mg/ml) IV PRN (11:32)
[2020-01-09] MEDS ORDERED: fentaNYL 100 mcg/2 ml 50 MCG/ML VIAL ONE (12:40)
[2020-01-09] MEDS ORDERED: Midazolam 10 mg/10 ml VIAL 1 mg/ml 10 ml VIAL (10 mg) ONE (13:29)
[2020-01-09] MEDS ORDERED: fentaNYL 250 mcg/5 ml 50 MCG/ML 5 ml VIAL (250 MCG) ONE (13:29)
[2020-01-09] MEDS ORDERED: Rocuronium 50 mg VIAL 10 mg/ml 5 ml VIAL (50 mg) ONE ×2 (13:29→16:24)
[2020-01-09] MEDS ORDERED: fentaNYL 100 mcg/2 ml 50 MCG/ML VIAL IV SLOW PU ONE (13:36)
[2020-01-09] MEDS ORDERED: Phenylephrine IV 10 MG/ML 1 ml VIAL ONE (16:25)
[2020-01-09] MEDS ORDERED: Norepinephrine IV 1 MG/ML 4 ML VIAL ONE (16:25)
[2020-01-09 17:00] LABS: Hematocrit 30 % (42-52); Hemoglobin 9.6 g/dL (14.0-18.0)
[2020-01-09 17:12] LABS: INR 1.2 (0.82-1.09)
[2020-01-09] MEDS ORDERED: Ketamine HCL 50 mg/ml 10 ml VIAL (500 MG) ONE (17:38)
[2020-01-09] MEDS ORDERED: Phenylephrine IV 50 MG in NS 0.9% 250 ml 245 ML IV SCH (18:00)
[2020-01-09] MEDS ORDERED: Albumin Human 25% 25 GM/100 ML BTL IV ONE (18:03)
[2020-01-09] MEDS: Norepinephrine 16MCG/ML IVPRE 4,000 MCG/250 ML BAG IV SCH (18:45)
[2020-01-09] MEDS ORDERED: fentaNYL INFUSION 50 MCG/ML 2,500 MCG/50 ML BAG IV SCH ×2 (19:00→23:18)
[2020-01-09 21:04] LABS: Hematocrit 36 % (42-52); Hemoglobin 11.7 g/dL (14.0-18.0); Mean Corpuscular HGB Conc 33 g/dL (31-36); Mean Corpuscular Hemoglobin 30 pg (27-31); Mean Corpuscular Volume 91 fL (80-94); Mean Platelet Volume 8.9 fL (7.4-10.4); Platelet Count 504 10^3/uL (150-450); Red Blood Count 3.95 10^6 /uL (4.18-5.48); Red Cell Distribution Width 18 % (10-15); White Blood Count 29.2 10^3/uL (3.5-10.8)
[2020-01-09 21:19] LABS: Albumin 2.8 g/dL (3.2-5.2); Albumin/Globulin Ratio 0.9 (1-3); BUN/Creatinine Ratio 12.5 (8-20); Calcium 7.8 mg/dL (8.6-10.3); EGFR African American 52.6 (>60); EGFR Non-African American 43.5 (>60); Globulin 3.1 g/dL (2-4); Magnesium 2.4 mg/dL (1.9-2.7); Potassium 4.6 mmol/L (3.5-5.0); Total Bilirubin 2.1 mg/dL (0.2-1.0); Total Protein 5.9 g/dL (6.4-8.9)
[2020-01-09] MEDS ORDERED: Lactated Ringers 1000 ml BAG 1,000 ML IV ONE (21:30)
[2020-01-09 21:33] LABS: Microcytosis 1+
[2020-01-09 21:34] LABS: ABS Basophils 0.3 10^3/ul (0-0.2); ABS Eosinophils 0.2 10^3/ul (0-0.6); ABS Lymphocytes 1.4 10^3/ul (1.0-4.8); ABS Nucleated RBC 0.1 10^3/ul; Eosinophil % 0.6 %; Lymphocyte % 4.6 %; Nucleated Red Blood Cells % 0.4
[2020-01-09] MEDS ORDERED: Chlorhexidine MOUTHWASH 0.12% 15 ML UDC ONE (21:41)
[2020-01-10] MEDS: Dextran 70/Hypromellose Tears Eye Drops 15 ml BTL (for Artificials Tears) BOTH EYES PRN ×4 (00:33→19:53)
[2020-01-10] MEDS: Chlorhexidine MOUTHWASH 0.12% 15 ML UDC SCH ×7 (02:22→22:23)
[2020-01-10] MEDS: ZOSYN 3.375 GM Q8H per EXTENDED INFUSION IV SCH ×3 (03:26→17:44)
[2020-01-10 05:13] LABS: Hematocrit 32 % (42-52); Hemoglobin 10.3 g/dL (14.0-18.0); Mean Corpuscular HGB Conc 32 g/dL (31-36); Mean Corpuscular Hemoglobin 30 pg (27-31); Mean Corpuscular Volume 91 fL (80-94); Mean Platelet Volume 9.1 fL (7.4-10.4); Platelet Count 354 10^3/uL (150-450); Red Blood Count 3.47 10^6 /uL (4.18-5.48); Red Cell Distribution Width 18 % (10-15); White Blood Count 21.4 10^3/uL (3.5-10.8)
[2020-01-10 05:17] LABS: ABS Basophils 0.1 10^3/ul (0-0.2); ABS Lymphocytes 1.7 10^3/ul (1.0-4.8); ABS Monocytes 2.9 10^3/ul (0-0.8); ABS Nucleated RBC 0.1 10^3/ul; Eosinophil % 0.1 %; Lymphocyte % 7.7 %; Nucleated Red Blood Cells % 0.2
[2020-01-10 05:24] LABS: Albumin 2.4 g/dL (3.2-5.2); Albumin/Globulin Ratio 0.9 (1-3); BUN/Creatinine Ratio 12.7 (8-20); Calcium 7.6 mg/dL (8.6-10.3); EGFR Non-African American 30.6 (>60); Globulin 2.8 g/dL (2-4); Indirect Bilirubin 0.7 mg/dL (0.3-1.0); Magnesium 2.3 mg/dL (1.9-2.7); Phosphorus 6.2 mg/dL (2.5-5.0); Potassium 4.8 mmol/L (3.5-5.0); Total Bilirubin 2.4 mg/dL (0.2-1.0); Total Protein 5.2 g/dL (6.4-8.9)
[2020-01-10] MEDS: D5W 1000 ml BAG 1,000 ML IV SCH (05:29)
[2020-01-10] MEDS: Propofol* 20 ML VIAL - FOR IV LINE PRIMING ONLY SCH (07:41)
[2020-01-10] MEDS: Venlafaxine 25 mg TAB (NF) G TUBE SCH ×2 (07:42→14:23)
[2020-01-10] MEDS: Lactulose 30 ml UDC PO SCH ×2 (07:42→14:23)
[2020-01-10] MEDS: Pantoprazole VIAL 40 MG VIAL IV SCH ×2 (08:38→22:23)
[2020-01-10] MEDS: Anidulafungin 100 MG in NS 0.9% 100 ml BAG 100 ML IVPB SCH (09:26)
[2020-01-10] MEDS: Metoprolol Tartrate 5 mg VIAL 5 ml VIAL (1 mg/ml) IV PRN ×6 (10:58→16:20)
[2020-01-10] MEDS ORDERED: Folic Acid 1 mg SYRINGE 0.2 ML SYRINGE IV SCH (11:00)
[2020-01-10] MEDS ORDERED: D5W 1/2 NS 1000 ml BAG 1,000 ML IV SCH (11:00)
[2020-01-10 11:26] LABS: INR 1.68 (0.82-1.09)
[2020-01-10 11:41] LABS: Albumin 2.3 g/dL (3.2-5.2); Albumin/Globulin Ratio 0.8 (1-3); BUN/Creatinine Ratio 13.6 (8-20); Calcium 7.5 mg/dL (8.6-10.3); EGFR African American 31.2 (>60); EGFR Non-African American 25.8 (>60); Globulin 2.9 g/dL (2-4); Potassium 4.4 mmol/L (3.5-5.0); Total Bilirubin 2.3 mg/dL (0.2-1.0); Total Protein 5.2 g/dL (6.4-8.9)
[2020-01-10] MEDS: FOLIC ACID IVPB SCH (11:53)
[2020-01-10] MEDS: NS 0.9% IVPB SCH (11:53)
[2020-01-10] MEDS: Thiamine 100 MG/ML 2 ml VIAL 100 MG in NS 0.9% 50 ML 50 ML IV SCH (12:30)
[2020-01-10] MEDS: Albumin Human 25% 25 GM/100 ML BTL IV ONE ×2 (13:03→13:31)
[2020-01-10] MEDS: Heparin 5000 UNITS/ML VIAL(*) 1 ml vial SUBCUT SCH ×2 (13:37→22:23)
[2020-01-10] MEDS ORDERED: Metoprolol Tartrate 5 mg VIAL 5 ml VIAL (1 mg/ml) IV ONE ×2 (13:51→21:27)
[2020-01-10] MEDS ORDERED: Lactated Ringers 1000 ml BAG 1,000 ML IV SCH ×2 (14:00→17:00)
[2020-01-10] MEDS ORDERED: Adenosine 3 MG/ML 2 ml VIAL (6 mg) ONE ×2 (14:01→14:43)
[2020-01-10] MEDS ORDERED: Adenosine 3 MG/ML 2 ml VIAL (6 mg) IV PUSH ONE ×4 (14:04→21:28)
[2020-01-10] MEDS ORDERED: Metoprolol Tartrate 5 mg VIAL 5 ml VIAL (1 mg/ml) ONE (15:55)
[2020-01-10] MEDS ORDERED: fentaNYL 100 mcg/2 ml 50 MCG/ML VIAL IV SLOW PU PRN (16:11)
[2020-01-10] MEDS: D5W 1/2 NS 1000 ml BAG 1,000 ML IV SCH (18:45)
[2020-01-10] MEDS ORDERED: Diltiazem IV push/loading dose 5 MG/ML 5 ML vial (25 mg) ONE (21:12)
[2020-01-10] MEDS ORDERED: NS 0.9% 500 ml BAG 500 ML IV ONE (21:26)
[2020-01-10] MEDS ORDERED: Diltiazem IV push/loading dose 5 MG/ML 5 ML vial (25 mg) IV SLOW PU ONE (21:27)
[2020-01-10] MEDS: Diltiazem IV BAG D5W Premix 125 MG/125 ML BAG IV SCH (21:34)
[2020-01-10] MEDS ORDERED: Chlorhexidine MOUTHWASH 0.12% 15 ML UDC ONE (22:18)
[2020-01-11] MEDS: D5W 1/2 NS 1000 ml BAG 1,000 ML IV SCH ×2 (00:10→08:36)
[2020-01-11] MEDS: ZOSYN 3.375 GM Q8H per EXTENDED INFUSION IV SCH (03:14)
[2020-01-11] MEDS: Chlorhexidine MOUTHWASH 0.12% 15 ML UDC SCH ×5 (03:14→17:03)
[2020-01-11 04:35] LABS: Urine Appearance Turbid; Urine Bilirubin Negative (Negative); Urine Blood 3+ (Negative); Urine Color Amber; Urine Glucose Negative (Negative); Urine Ketones Negative (Negative); Urine Nitrite Negative (Negative); Urine Protein 2+(100 mg/dL) (Negative); Urine Specific Gravity 1.018 (1.010-1.030); Urine Urobilinogen Negative (Negative)
[2020-01-11] MEDS: Diltiazem IV BAG D5W Premix 125 MG/125 ML BAG IV SCH (04:40)
[2020-01-11 04:42] LABS: Hematocrit 27 % (42-52); Hemoglobin 8.8 g/dL (14.0-18.0); Mean Corpuscular HGB Conc 33 g/dL (31-36); Mean Corpuscular Hemoglobin 30 pg (27-31); Mean Corpuscular Volume 91 fL (80-94); Mean Platelet Volume 9.4 fL (7.4-10.4); Platelet Count 265 10^3/uL (150-450); Red Blood Count 2.97 10^6 /uL (4.18-5.48); Red Cell Distribution Width 18 % (10-15)
[2020-01-11 04:43] LABS: ABS Basophils 0.1 10^3/ul (0-0.2); ABS Eosinophils 0.1 10^3/ul (0-0.6); ABS Lymphocytes 1.1 10^3/ul (1.0-4.8); ABS Monocytes 1.6 10^3/ul (0-0.8); Eosinophil % 0.4 %; Lymphocyte % 6.3 %; Nucleated Red Blood Cells % 0.1
[2020-01-11 04:46] LABS: INR 1.49 (0.82-1.09)
[2020-01-11 04:51] LABS: Albumin 2.2 g/dL (3.2-5.2); Albumin/Globulin Ratio 0.8 (1-3); EGFR African American 22.8 (>60); EGFR Non-African American 18.8 (>60); Globulin 2.7 g/dL (2-4); Indirect Bilirubin 0.4 mg/dL (0.3-1.0); Magnesium 2.2 mg/dL (1.9-2.7); Phosphorus 4.7 mg/dL (2.5-5.0); Potassium 3.3 mmol/L (3.5-5.0); Total Protein 4.9 g/dL (6.4-8.9)
[2020-01-11 04:52] LABS: Urine Bacteria Absent (Absent); Urine Red Blood Cell 3+(>10/hpf) (Absent); Urine Red Blood Cell Casts Present (Absent); Urine Squamous Epithelial Cell Present (Absent); Urine White Blood Cell 3+(>20/hpf) (Absent)
[2020-01-11] MEDS: Heparin 5000 UNITS/ML VIAL(*) 1 ml vial SUBCUT SCH ×2 (05:13→13:22)
[2020-01-11] MEDS: Dextran 70/Hypromellose Tears Eye Drops 15 ml BTL (for Artificials Tears) BOTH EYES PRN (05:13)
[2020-01-11] MEDS: KCL 20 MEQ/100 ML IVPREMIX 20 MEQ/100 ML BAG IV SCH ×2 (06:02→08:15)
[2020-01-11] MEDS: Pantoprazole VIAL 40 MG VIAL IV SCH (08:15)
[2020-01-11] MEDS ORDERED: Diltiazem IV BAG D5W Premix 125 MG/125 ML BAG IV SCH (08:20)
[2020-01-11] MEDS: Anidulafungin 100 MG in NS 0.9% 100 ml BAG 100 ML IVPB SCH (08:36)
[2020-01-11] MEDS ORDERED: Artificial Tear OPHTH.OINT 3.5 GM BOTH EYES PRN (09:33)
[2020-01-11] MEDS: FOLIC ACID IVPB SCH (10:39)
[2020-01-11] MEDS: NS 0.9% IVPB SCH (10:39)
[2020-01-11] MEDS: Thiamine 100 MG/ML 2 ml VIAL 100 MG in NS 0.9% 50 ML 50 ML IV SCH (10:40)
[2020-01-11] MEDS ORDERED: Morphine PCA ADULT 5 MG/ML 30 ML PCA SCH ×2 (11:00→14:50)
[2020-01-11] MEDS ORDERED: Morphine 10 MG/ML VIAL (1 ml) ONE ×2 (14:41→15:05)
[2020-01-11] MEDS: LORazepam 2 mg VIAL 1 ml IV PUSH PRN ×5 (14:43→19:18)
[2020-01-11] MEDS ORDERED: LORazepam 2 mg VIAL 1 ml IV PUSH PRN (14:49)
[2020-01-11] MEDS ORDERED: Lorazepam PYXIS KEY PRN (14:49)
[2020-01-11] MEDS ORDERED: Morphine 10 MG/ML VIAL (1 ml) IV STA (15:01)
[2020-01-11] MEDS ORDERED: ZOSYN 3.375 GM Q12H per EXTENDED INFUSION IV SCH (16:00)
[2020-01-11] MEDS: Atropine 1% (ORAL/SL) 15 ML BTL SL PRN ×2 (16:07→18:11)
[2020-01-11 16:11] VITALS: BP 109/48
[2020-01-11] MEDS ORDERED: Midazolam IV for DRIP 100 MG in NS 0.9% 100 ml BAG 80 ML IV SCH ×2 (16:30→16:57)
== END 2020-01-11 19:40 | disposition expired | DRG 981 ==
LOC: ED 15:45 → ICU 19:52
PROVIDERS: ADMIT Pediatrics; ATTEND Surgery Surgical Critical Care